=== PATIENT | female | born 1970 | race African-American/Black ===

== ENCOUNTER 2021-04-07 05:28 | Day surgery (SDC) | payer OTHER ==
[2021-04-03 16:03] VITALS: BMI 29.2
[2021-04-07] MEDS ORDERED: BUPIVACAINE HCL 50 ML ONE ×2 (07:57→11:44)
[2021-04-07] MEDS ORDERED: LIDOCAINE HCL 1%, 10 MG/ML (20ML VIAL) ONE ×2 (08:35→11:43)
[2021-04-07] MEDS ORDERED: INSULIN REGULAR HUMAN 100 UNITS/ML *VIAL* (FOR IVP) IVPUSH ONE (08:55)
[2021-04-07] MEDS ORDERED: INSULIN (NOVOLOG) ASPART 100 UNITS/ML 10ML VIAL NR ONE (09:00)
[2021-04-07] MEDS ORDERED: INSULIN REGULAR HUMAN 100 UNITS/ML *VIAL IVPUSH ONE (09:00)
[2021-04-07] MEDS ORDERED: INSULIN (NOVOLOG) ASPART 100 UNITS/ML 10ML VIAL SQ ONE (09:00)
[2021-04-07] MEDS ORDERED: ONDANSETRON 4 MG/2 ML VIAL IVPUSH PRN (10:57)
[2021-04-07] MEDS ORDERED: oxyCODONE HCL 5 MG TABLET PO PRN (10:57)
[2021-04-07] MEDS ORDERED: LACTATED RINGERS SOLUTION 1,000 ML IV SCH (11:00)
[2021-04-07] MEDS ORDERED: MIDAZOLAM HCL 2 MG/2 ML SINGLE DOSE VIAL ONE ×2 (11:00→11:05)
[2021-04-07] MEDS ORDERED: ceFAZolin SODIUM 1 GM VIAL ONE (11:01)
[2021-04-07] MEDS ORDERED: GLYCOPYRROLATE 0.2 MG/1 ML VIAL ONE (11:01)
[2021-04-07] MEDS ORDERED: PROPOFOL 20 ML ONE ×3 (11:01→11:40)
[2021-04-07] MEDS ORDERED: KETOROLAC TROMETHAMINE 30 MG/1 ML VIAL ONE (11:02)
[2021-04-07] MEDS ORDERED: LIDOCAINE HCL/PF 2% SDV 5ML VIAL ONE (11:02)
[2021-04-07] MEDS ORDERED: SODIUM CHLORIDE 0.9% P/F 10 ML VIAL IJ ONE (11:02)
[2021-04-07] MEDS ORDERED: ceFAZolin SODIUM 1 GM VIAL IVPB ONE (11:15)
[2021-04-07] MEDS ORDERED: SUCCINYLCHOLINE CHLORIDE 200 MG/10 ML SYRINGE ONE (11:25)
[2021-04-07] MEDS ORDERED: PROTAMINE SULFATE 50 MG/5 ML VIAL ONE (11:40)
[2021-04-07] MEDS ORDERED: DESFLURANE GAS 240 ML BOTTLE IH ONE (11:45)
[2021-04-07] MEDS ORDERED: LIDOCAINE HCL 1%, 10 MG/ML (20ML VIAL) NR ONE (11:50)
[2021-04-07] MEDS ORDERED: BUPIVACAINE HCL/PF 0.5% (5 MG/ML) 30 ML VIAL IJ ONE (11:50)
[2021-04-07] MEDS ORDERED: BACITRACIN 15 GM TUBE TOPICAL OINTMENT ONE (11:55)
[2021-04-07 15:02] VITALS: BP 139/78; PULSE 89; TEMP 97.9
== END 2021-04-07 14:15 | disposition home or self-care (01) ==
LOC: JASU-SURG 05:28
PROVIDERS: ATTEND Surgery
PROC: 0JB60ZZ Excision of Chest Subcutaneous Tissue and Fascia, Open Approach (ICD-10-PCS; principal; 2021-04-07 09:00)
DX: N63.10 Unspecified lump in the right breast, unspecified quadrant (principal); L72.0 Epidermal cyst; L02.818 Cutaneous abscess of other sites; E11.9 Type 2 diabetes mellitus without complications; Z79.84 Long term (current) use of oral hypoglycemic drugs
CPT/HCPCS: 82962; 87070; 87075; 87186; 87205; 88305-TC; 93005; 93010; 94760